=== PATIENT | female | born 1965 | race Caucasian/White ===

== ENCOUNTER 2020-05-20 16:47 | Inpatient (IN) | payer MEDICAID ==
[~2020-05-20] VITALS: Ht 167.6 cm; Wt 68.1 kg
[~2020-05-20 16:47] MED LIST: AMIO200T4 PO; ASPI-231 PO; ATOR10TA52 PO; GABA300C PO; LEVE500T32 PO; METO2.5T11 PO; METO25TA93 PO; PANT40TA2 PO; POTA-220 PO; TORS20TA20 PO
[2020-05-20] MEDS ORDERED: SODIUM CHLORIDE 0.9% 1,000 ML IVB ONE (18:15)
[2020-05-20] MEDS ORDERED: LORazepam 2MG/ML-1ML VIAL IV ONE (18:15)
[2020-05-20] MEDS ORDERED: THIAMINE 100mg/ml INJ (200mg/2ml VIAL) IV ONE (20:45)
[2020-05-20] MEDS ORDERED: cefTRIAXone 1GM/50ML D5W 50 ML IV ONE (20:45)
[2020-05-20 21:01] LABS: Basophils # (auto) 0 10 ^3/uL (0-0.2); Eosinophils # (auto) 0.1 10 ^3/uL (0-0.8); Eosinophils % (auto) 1.6 % (0.0-7.0); Hematocrit 34.2 % (36.0-46.0); Hemoglobin 11.4 g/dL (12.2-16.2); Lymphocytes # (auto) 0.8 10 ^3/uL (0.4-5.4); Lymphocytes % (auto) 22.3 % (10.0-50.0); Mean Corpuscular Hemoglobin 31.2 pg (28.0-32.0); Mean Corpuscular Hgb Conc. 33.4 g/dL (32.0-36.0); Mean Corpuscular Volume 93.5 fL (80.0-100.0); Monocytes # (auto) 0.3 10 ^3/uL (0-1.3); Monocytes % (auto) 9.6 % (0.0-12.0); Neutrophils # (auto) 2.3 10 ^3/uL (1.6-8.6); Neutrophils % (auto) 65.5 % (37.0-80.0); Nucleated Red Blood Cells % 0.1 %; Platelet Count (auto) 164 10^3/uL (140-450); Red Blood Cells 3.66 10^6/uL (4.0-5.20); Red Cell Distribution Width 19.8 % (11.8-14.3); White Blood Cell 3.5 10^3/uL (4.4-10.8)
[2020-05-20 21:15] LABS: INR 1.17 (0.9-1.15)
[2020-05-20 21:17] LABS: Albumin 3.2 g/dL (3.4-5.0); Calcium 7.7 mg/dL (8.5-10.1); Potassium 3.8 mmol/L (3.5-5.1)
[2020-05-20 21:19] LABS: Acetaminophen < 2.0 ug/mL (10-30); Salicylate < 1.7 mg/dL (2.8-20.0)
[2020-05-20 21:31] LABS: Bilirubin, Total 0.6 mg/dL (0.2-1.0); Total Protein 6.7 g/dL (6.4-8.2)
[2020-05-20] MEDS ORDERED: FOLIC ACID 1 MG, MULTIPLE VITAMIN 10 ML, MAGNESIUM SULF SDV 50% 8 MEQ, THIAMINE INJ 100... INJ STA ×5 (21:59)
[2020-05-20 22:05] LABS: BUN/Creatinine Ratio 12.5
[2020-05-20] MEDS ORDERED: ONDANSETRON HCL 4 MG/2 ML VIAL IV PRN (23:15)
[2020-05-20] MEDS ORDERED: NITROGLYCERIN 0.4 MG SL TAB SL PRN (23:15)
[2020-05-20] MEDS ORDERED: TEMAZEPAM 15 MG CAP PO PRN (23:15)
[2020-05-20] MEDS ORDERED: METOPROLOL SUCCINATE XL 50 MG TAB PO ONE (23:15)
[2020-05-20] MEDS ORDERED: MORPHINE SULF INJ 2 MG/ML SYRINGE 1ML IV PRN (23:15)
[2020-05-21] MEDS ORDERED: THIAMINE 100mg/ml INJ (200mg/2ml VIAL) ONE (02:01)
[2020-05-21 02:48] LABS: Urine Bacteria FEW /hpf (None Seen); Urine Blood Negative /uL (Negative); Urine Hyaline Cast FEW /lpf (0 - 2); Urine Specific Gravity 1.017 (1.001-1.035); Urine WBC 2 /hpf (0 - 5)
[2020-05-21 02:52] LABS: Amphetamine Screen, Urine NEGATIVE (NEGATIVE); Barbiturate Scree,Urine NEGATIVE (NEGATIVE); Benzodiazephine Screen, Urine NEGATIVE (NEGATIVE); Cannabinoid Screen, Urine POSITIVE (NEGATIVE); Cocaine Screen, Urine NEGATIVE (NEGATIVE); Opiate Scree,Urine NEGATIVE (NEGATIVE); Phencyclidine Screen, Urine NEGATIVE (NEGATIVE)
[2020-05-21] MEDS: FUROSEMIDE 20 MG TAB PO SCH ×2 (05:48→18:00)
[2020-05-21 07:50] LABS: Basophils # (auto) 0 10 ^3/uL (0-0.2); Basophils % (auto) 0.7 % (0.0-2.0); Eosinophils # (auto) 0 10 ^3/uL (0-0.8); Eosinophils % (auto) 0.6 % (0.0-7.0); Hematocrit 31.9 % (36.0-46.0); Lymphocytes # (auto) 0.6 10 ^3/uL (0.4-5.4); Lymphocytes % (auto) 12.9 % (10.0-50.0); Mean Corpuscular Hemoglobin 31.4 pg (28.0-32.0); Mean Corpuscular Hgb Conc. 34.4 g/dL (32.0-36.0); Mean Corpuscular Volume 91.5 fL (80.0-100.0); Monocytes # (auto) 0.4 10 ^3/uL (0-1.3); Monocytes % (auto) 9.7 % (0.0-12.0); Neutrophils # (auto) 3.4 10 ^3/uL (1.6-8.6); Neutrophils % (auto) 76.1 % (37.0-80.0); Nucleated Red Blood Cells % 0.1 %; Platelet Count (auto) 157 10^3/uL (140-450); Red Blood Cells 3.49 10^6/uL (4.0-5.20); Red Cell Distribution Width 19.7 % (11.8-14.3); White Blood Cell 4.4 10^3/uL (4.4-10.8)
[2020-05-21 08:02] LABS: Albumin 3.4 g/dL (3.4-5.0); Calcium 8.5 mg/dL (8.5-10.1); Potassium 3.8 mmol/L (3.5-5.1)
[2020-05-21 08:05] LABS: BUN/Creatinine Ratio 11.3; Total Protein 6.8 g/dL (6.4-8.2)
[2020-05-21] MEDS ORDERED: LORazepam 2MG/ML-1ML VIAL IV ONE (08:15)
[2020-05-21] MEDS: predniSONE 5 MG TAB PO SCH (09:02)
[2020-05-21] MEDS: levETIRAcetam 500 MG TAB PO SCH ×2 (09:02→22:00)
[2020-05-21] MEDS: CITALOPRAM HYDROBR 20 MG TAB PO SCH (09:02)
[2020-05-21] MEDS: FAMOTIDINE 20 MG TAB PO SCH ×2 (09:02→22:00)
[2020-05-21] MEDS: AMIODARONE HCL 200 MG TAB PO SCH (09:02)
[2020-05-21] MEDS: METOPROLOL SUCCINATE XL 50 MG TAB PO SCH (09:03)
[2020-05-21] MEDS: TACROLIMUS 1 MG CAP PO SCH (09:21)
[2020-05-21] MEDS ORDERED: CELLCEPT PO SCH (10:00)
[2020-05-21] MEDS ORDERED: FOLIC ACID 1 MG, MULTIPLE VITAMIN 10 ML, MAGNESIUM SULF SDV 50% 8 MEQ, THIAMINE INJ 100... INJ SCH ×5 (12:00)
[2020-05-21] MEDS ORDERED: chlordiazePOXIDE HCL 25 MG CAP PO ONE (12:30)
[2020-05-21] MEDS: MYCOPHENOLATE 500 MG TAB PO SCH ×2 (12:42→22:00)
[2020-05-21] MEDS: chlordiazePOXIDE HCL 25 MG CAP PO SCH (18:00)
[2020-05-21] MEDS: cefTRIAXone 1GM/50ML D5W 50 ML IV SCH (21:00)
[2020-05-21] MEDS: TACROLIMUS 0.5 MG CAP PO SCH (22:00)
[2020-05-21] MEDS: ATORVASTATIN 20 MG TAB PO SCH (22:00)
[2020-05-21] MEDS: HYDROcodone-ACET 5/325MG TAB PO PRN (22:38)
[2020-05-22] MEDS: HYDROcodone-ACET 5/325MG TAB PO PRN ×2 (05:00→12:10)
[2020-05-22] MEDS: FUROSEMIDE 20 MG TAB PO SCH (06:22)
[2020-05-22] MEDS: chlordiazePOXIDE HCL 25 MG CAP PO SCH ×4 (06:22→17:56)
[2020-05-22 09:20] VITALS: BP 105/84
[2020-05-22 10:00] VITALS: BP 108/76
[2020-05-22] MEDS: MYCOPHENOLATE 500 MG TAB PO SCH ×2 (10:00→21:35)
[2020-05-22] MEDS: predniSONE 5 MG TAB PO SCH (10:15)
[2020-05-22] MEDS: FOLIC ACID 1 MG TAB PO SCH (10:15)
[2020-05-22] MEDS: levETIRAcetam 500 MG TAB PO SCH ×2 (10:16→21:35)
[2020-05-22] MEDS: AMIODARONE HCL 200 MG TAB PO SCH (10:16)
[2020-05-22] MEDS: CITALOPRAM HYDROBR 20 MG TAB PO SCH (10:16)
[2020-05-22] MEDS: FAMOTIDINE 20 MG TAB PO SCH ×2 (10:16→21:35)
[2020-05-22] MEDS: THIAMINE HCL 100 MG TAB PO SCH (10:16)
[2020-05-22] MEDS: METOPROLOL SUCCINATE XL 50 MG TAB PO SCH (10:17)
[2020-05-22] MEDS: TACROLIMUS 1 MG CAP PO SCH (10:19)
[2020-05-22 13:00] VITALS: BP 107/68
[2020-05-22 16:47] VITALS: BP 118/83
[2020-05-22] MEDS: cefTRIAXone 1GM/50ML D5W 50 ML IV SCH (21:35)
[2020-05-22] MEDS: ATORVASTATIN 20 MG TAB PO SCH (21:35)
[2020-05-22] MEDS: TACROLIMUS 0.5 MG CAP PO SCH (21:35)
[2020-05-22] MEDS: DOXYCYCLINE 100 MG TAB/CAP PO SCH (21:35)
[2020-05-22 21:57] VITALS: BP 105/77
[2020-05-23 05:00] VITALS: BP 92/63
[2020-05-23] MEDS: chlordiazePOXIDE HCL 25 MG CAP PO SCH ×4 (06:00→17:39)
[2020-05-23 06:28] LABS: Potassium 3.3 mmol/L (3.5-5.1)
[2020-05-23 06:40] LABS: BUN/Creatinine Ratio 14.8; Calcium 9.8 mg/dL (8.5-10.1)
[2020-05-23 08:23] VITALS: BP 91/68
[2020-05-23] MEDS: HYDROcodone-ACET 5/325MG TAB PO PRN ×2 (09:32→17:43)
[2020-05-23] MEDS: DOXYCYCLINE 100 MG TAB/CAP PO SCH (09:32)
[2020-05-23] MEDS: levETIRAcetam 500 MG TAB PO SCH (09:33)
[2020-05-23] MEDS: THIAMINE HCL 100 MG TAB PO SCH (09:33)
[2020-05-23] MEDS: predniSONE 5 MG TAB PO SCH (09:33)
[2020-05-23] MEDS: FOLIC ACID 1 MG TAB PO SCH (09:33)
[2020-05-23] MEDS: FAMOTIDINE 20 MG TAB PO SCH (09:33)
[2020-05-23] MEDS: AMIODARONE HCL 200 MG TAB PO SCH (09:40)
[2020-05-23] MEDS: MYCOPHENOLATE 500 MG TAB PO SCH (09:41)
[2020-05-23] MEDS: TACROLIMUS 1 MG CAP PO SCH (09:42)
[2020-05-23] MEDS: METOPROLOL SUCCINATE XL 50 MG TAB PO SCH (09:43)
[2020-05-23] MEDS ORDERED: SERTRALINE HCL 50 MG TAB PO SCH (10:00)
[2020-05-23] MEDS ORDERED: FOLI1TAB6 PO (11:33)
[2020-05-23] MEDS ORDERED: THIA100T10 PO (11:33)
[2020-05-23] MEDS ORDERED: SERT100T PO (11:33)
[2020-05-23 13:00] VITALS: BP 104/73
[2020-05-23] MEDS ORDERED: LEVO750T64 PO (13:37)
[2020-05-23 16:59] VITALS: BP 108/73
[2020-05-23] MEDS ORDERED: POTASSIUM CHL 20 Meq TABLET PO ONE (17:00)
== END 2020-05-23 18:20 | disposition home health service (06) | DRG 816 ==
LOC: EDBD 16:47 → ER 16:49 → TELE 16:50 → TELE-WESTW 05-22 12:48
PROVIDERS: ADMIT Nurse Practitioner; ATTEND Internal Medicine
DX: T51.0X1A Toxic effect of ethanol, accidental (unintentional), initial encounter (principal); J96.01 Acute respiratory failure with hypoxia; G92 Toxic encephalopathy; J18.9 Pneumonia, unspecified organism; D70.9 Neutropenia, unspecified; Z94.1 Heart transplant status; K70.9 Alcoholic liver disease, unspecified; I48.91 Unspecified atrial fibrillation; G40.89 Other seizures; Y90.8 Blood alcohol level of 240 mg/100 ml or more; E78.5 Hyperlipidemia, unspecified; D64.9 Anemia, unspecified; Z20.822 Contact with and (suspected) exposure to COVID-19; F10.229 Alcohol dependence with intoxication, unspecified; F10.239 Alcohol dependence with withdrawal, unspecified; F31.9 Bipolar disorder, unspecified; Z83.2 Family history of diseases of the blood and blood-forming organs and certain disorders involving the immune mechanism; Z86.73 Personal history of transient ischemic attack (TIA), and cerebral infarction without residual deficits; Z90.49 Acquired absence of other specified parts of digestive tract; F43.23 Adjustment disorder with mixed anxiety and depressed mood; F12.10 Cannabis abuse, uncomplicated
CPT/HCPCS: 36415; 71045; 73502; 80048; 80053; 80307; 80320; 80329; 81001; 83605; 83735; 83880; 84484; 85025; 85610; 85730; 87040; 87426; 96361; 96374; G0378; J0696; J7507; J7517